=== PATIENT | female | born 1980 | race African-American/Black ===

== ENCOUNTER 2019-06-04 16:18 | Inpatient (IN) | payer BC ==
[2019-06-04 19:13] VITALS: BMI 27.4
--- NOTE | 2019-06-04 20:24 | HP ---
CIWA Score Nausea/Vomitin-Mild Nausea/No Vomiting Muscle Tremors: None Anxiety: 1-Mildly Anxious Agitation: 1-Slight > Activity Paroxysmal Sweats: 3 Orientation: 2-Disoriented Date<2 days Tacttile Disturbances: 0-None Auditory Disturbances: 0-None Visual Disturbances: 0-None Headache: 4-Moderately Severe CIWA-Ar Total Score: 12 - Admission Criteria OASAS Guidelines: Admission for Medically Managed Detox: Requires at least one of the followin. CIWA greater than 12 2. Seizures within the past 24 hours 3. Delirium tremens within the past 24 hours 4. Hallucinations within the past 24 hours 5. Acute intervention needed for co occurring medical disorder 6. Acute intervention needed for co occurring psychiatric disorder 7. Severe withdrawal that cannot be handled at a lower level of care (continued vomiting, continued diarrhea, abnormal vital signs) requiring intravenous medication and/or fluids 8. Patient presents the following: CIWA greater than 12 Admission Criteria Met: Admission criteria met Admitting History and Physical - Smoking History Smoking history: Current every day smoker Have you smoked in the past 12 months: Yes Admission ROS [facility] Chief Complaint: seeking detox Allergies/Adverse Reactions: Allergies Allergy/AdvReac Type Severity Reaction Status Date / Time No Known Allergies Allergy Verified 06/04/19 19:04 History of Present Illness: HERE FOR DETOX FROM ALCOHOL. CLIENT IS REFERRED BY [facility]. THIS IS HER FIRST TIME SEEKING INPATIENT TXMENT. CLIENT REPORTS DAILY ALCOHOL INTAKE. LAST INTAKE A FEW HOURS AGO. NOW PRESENTS WITH C/O WORSENING WITHDRAWAL SX'S. 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 REPORTS LONGEST CLEAN TIME 9 MONTHS. RELAPSING IN 2006. HOMELESS, UNEMPLOYED, DENIES LEGALS Exam Limitations: No Limitations - Ebola screening Have you traveled outside of the country in the last 21 days: No (N) Have you had contact with anyone from an Ebola affected area: No Do you have a fever: No - Review of Systems Constitutional: Chills, Loss of Appetite, Night Sweats, Changes in sleep EENT: reports: Blurred Vision, Dental Problems (MISSING TEETH/POOR DENTITION) Respiratory: reports: Shortness of Breath Cardiac: reports: Chest Tightness (INTERMITTENT- PRESENTLY DENIES) GI: reports: Nausea, Poor Appetite, Poor Fluid Intake, Vomiting (X 1 TODAY) : reports: No Symptoms Reported Musculoskeletal: reports: Back Pain, Joint Pain, Neck Pain Integumentary: reports: No Symptoms Reported Neuro: reports: Seizure (GENERALIZED FATIGUE), Other (BLACK OUTS) Endocrine: reports: No Symptoms Reported Hematology: reports: No Symptoms Reported Psychiatric: reports: Orientated x3, Agitated (IRRITABLE) Other Systems: Reviewed and Negative Patient History - Patient Medical History Hx Anemia: No Hx Asthma: No Hx Chronic Obstructive Pulmonary Disease (COPD): No Hx Cancer: No Hx Cardiac Disorders: No Hx Congestive Heart Failure: No Hx Hypertension: No Hx Hypercholesterolemia: No Hx Pacemaker: No HX Cerebrovascular Accident: No Hx Seizures: No Hx Dementia: No Hx Diabetes: No Hx Gastrointestinal Disorders: No Hx Liver Disease: No Hx Genitourinary Disorders: No Hx Sexually Transmitted Disorders: No Hx Renal Disease (ESRD): No Hx Thyroid Disease: No Hx Human Immunodeficiency Virus (HIV): No Hx Hepatitis C: No Hx Depression: No Hx Suicide Attempt: No Hx Bipolar Disorder: No Hx Schizophrenia: No Other Medical History: DENIES - Patient Surgical History Past Surgical History: Yes Other Surgical History: SPLEENECTOMY Anesthesia Reaction: No - PPD History Previous Implant?: Yes Documented Results: Negative w/o proof Implanted On Prior R Admission?: No PPD to be Administered?: Yes - Reproductive History Patient is a Female of Child Bearing Age (11 -55 yrs old): Yes LMP comment: "YEARS AGO" [place] [facility] [place] - Smoking Cessation Smoking history: Current every day smoker Have you smoked in the past 12 months: Yes Aproximately how many cigarettes per day: 4 Cigars Per Day: 2 Hx Chewing Tobacco Use: No Initiated information on smoking cessation: Yes 'Breaking Loose' booklet given: 06/04/19 - Substances abused Alcohol Substance route: Oral Frequency: Daily Amount used: 3 bottles of Pualmason/ julio. Age of first use: 18 Date of last use: 06/04/19 Admission Physical Exam BHS - Vital Signs Vital Signs: Vital Signs - 24 hr 06/04/19 19:05 Temperature 98.4 F Pulse Rate 83 Respiratory 16 Rate Blood Pressure 127/86 - Physical General Appearance: Yes: Mild Distress, Irritable HEENTM: Yes: EOMI, Normocephalic, Normal Voice, JOSHUA, Nasal Congestion, Other ( POOR DENTITION) Respiratory: Yes: Chest Non-Tender, Lungs Clear, Normal Breath Sounds, No Respiratory Distress, No Accessory Muscle Use Neck: Yes: No masses,lesions,Nodules, Supple, Trachea in good position Breast: Yes: Breast Exam Deferred Cardiology: Yes: Regular Rhythm, Regular Rate, S1, S2 Abdominal: Yes: Normal Bowel Sounds, Non Tender, Soft Genitourinary: Yes: Within Normal Limits Back: Yes: Surgical Scar Musculoskeletal: Yes: full range of Motion, Gait Steady Extremities: Yes: Normal Capillary Refill, Normal Range of Motion, Non-Tender Neurological: Yes: Fully Oriented, Alert, Motor Strength 5/5, Depressed Affect Integumentary: Yes: Dry, Warm Lymphatic: Yes: Within Normal Limits - Diagnostic (1) Alcohol dependence with withdrawal, uncomplicated Current Visit: Yes Status: Acute (2) Nicotine dependence Current Visit: Yes Status: Chronic Qualifiers: Nicotine product type: cigarettes Substance use status: uncomplicated Qualified Code(s): F17.210 - Nicotine dependence, cigarettes, uncomplicated (3) Depressed affect Current Visit: Yes Status: Acute (4) Substance induced mood disorder Current Visit: Yes Status: Acute (5) Homeless Current Visit: Yes Status: Acute Cleared for Admission [facility] - Detox or Rehab [facility] Level of Care: Medically Managed Detox Regimen/Protocol: Valium Claeared for Rehab Admission: No Breathalyzer - Breathalyzer Breathalyzer: 0 Urine Drug Screen - Test Device Lot number: [id number] Expiration date: 02/06/21 - Control Is test valid?: Yes - Results Drug screen NEGATIVE: Yes Inpatient Rehab Admission - Rehab Decision to Admit Inpatient rehab admission?: No
[2019-06-04] MEDS ORDERED: IBUPROFEN 400 MG TABLET (FP) PO PRN (20:32)
[2019-06-04] MEDS ORDERED: NICOTINE POLACRILEX 2 MG GUM BUC PRN (20:32)
[2019-06-04] MEDS ORDERED: ACETAMINOPHEN 325 MG TABLET (FP) PO PRN ×2 (20:32)
[2019-06-04] MEDS ORDERED: METHOCARBAMOL 500 MG TABLET PO PRN (20:32)
[2019-06-04] MEDS ORDERED: DICYCLOMINE HCL 10 MG CAPSULE PO PRN (20:32)
[2019-06-04] MEDS ORDERED: P-EPHED 60MG/TRIPROLIDI 2.5MG TABLET PO PRN (20:32)
[2019-06-04] MEDS ORDERED: BISMUTH SUBSALICYLATE 524 MG/30 ML UD PO PRN (20:32)
[2019-06-04] MEDS ORDERED: ONDANSETRON *ODT* 4 MG TABLET SL PRN (20:32)
[2019-06-04] MEDS ORDERED: MAG HYDROX/AL HYDROX/SIMETH 30 ML UNIT-DOSE CUP PO PRN (20:32)
[2019-06-04] MEDS ORDERED: hydrOXYzine PAMOATE 25 MG CAPSULE (FP) PO PRN (20:32)
[2019-06-04] MEDS ORDERED: MAGNESIUM HYDROX 2400MG/30ML ORAL SUSPENSION 30 ML CUP PO PRN (20:32)
[2019-06-04] MEDS ORDERED: diazePAM 5 MG TABLET PO PRN (20:32)
[2019-06-04] MEDS ORDERED: MENTHOL/PHENOL 1 EACH UD MM PRN (20:32)
[2019-06-04] MEDS ORDERED: guaiFENesin 200 MG/10 ML 10 ML UNIT-DOSE CUPS PO PRN (20:32)
[2019-06-04] MEDS ORDERED: MELATONIN 5 MG TABLETS PO PRN (20:32)
[2019-06-04] MEDS ORDERED: MAGNESIUM CITRATE 300 ML BOTTLE PO PRN (20:32)
[2019-06-04] MEDS: diazePAM 5 MG TABLET PO SCH (22:44)
[2019-06-04] MEDS: THIAMINE HCL 100 MG TABLET (FP) PO SCH (22:44)
[2019-06-05] MEDS: diazePAM 5 MG TABLET PO SCH ×3 (06:19→22:25)
[2019-06-05 10:26] LABS: ALBUMIN 3.4 g/dl (3.4-5.0); BILIRUBIN,TOTAL 0.4 mg/dL (0.2-1); BLOOD UREA NITROGEN 11.7 mg/dL (7-18); CALCIUM 8.8 mg/dL (8.5-10.1); CREATININE 0.6 mg/dL (0.55-1.3); POTASSIUM 3.9 mmol/L (3.5-5.1)
[2019-06-05 10:30] LABS: HEMATOCRIT 36.7 % (32.4-45.2); HEMOGLOBIN 11.9 GM/dL (10.7-15.3); MCH 28.4 pg (25.7-33.7); MCHC 32.4 g/dl (32.0-36.0); MEAN CELL VOLUME 87.6 fl (80-96); MEAN PLT VOLUME 8.1 fl (7.5-11.1); PLATELET COUNT 286 K/MM3 (134-434); RBC 4.19 M/mm3 (3.60-5.2); WHITE BLOOD COUNT 5.1 K/mm3 (4.0-10.0)
--- NOTE | 2019-06-05 10:49 | EKG ---
Test Reason : Blood Pressure : / mmHG Vent. Rate : 066 BPM Atrial Rate : 066 BPM P-R Int : 144 ms QRS Dur : 094 ms QT Int : 414 ms P-R-T Axes : 053 023 028 degrees QTc Int : 434 ms NORMAL SINUS RHYTHM NORMAL ECG NO PREVIOUS ECGS AVAILABLE Confirmed by LAUREN REN, SAGRARIO ([id number]) on 06/05/2019 10:49:16 AM Referred By: Abdulkadir Carney Confirmed By:SAGRARIO AGUILAR MD
[2019-06-05] MEDS: NICOTINE 14 MG/24 HOURS TOPICAL PATCH TD SCH (10:50)
[2019-06-05] MEDS: PRENATAL VITAMINS W/ FOLIC ACID TABLET (FP) PO SCH (10:50)
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
[2019-06-05] MEDS ORDERED: MELATONIN 5 MG TABLETS PO PRN (12:06)
--- NOTE | 2019-06-05 12:32 | PN ---
[facility] CIWA - CIWA Score Nausea/Vomitin-No Nausea/No Vomiting Muscle Tremors: 3 Anxiety: 3 Agitation: 3 Paroxysmal Sweats: 2 Orientation: 0-Oriented Tacttile Disturbances: 0-None Auditory Disturbances: 0-None Visual Disturbances: 0-None Headache: 0-None Present CIWA-Ar Total Score: 11 S Progress Note (SOAP) Subjective: sweats irritable agitation body aches Objective: 06/05/19 12:31 Vital Signs Temperature 98.1 F 06/05/19 09:43 Pulse Rate 97 H 06/05/19 09:43 Respiratory Rate 18 06/05/19 09:43 Blood Pressure 129/86 06/05/19 09:43 O2 Sat by Pulse Oximetry (%) Laboratory Tests 06/04/19 06/05/19 06/05/19 19:54 07:00 07:00 WBC 5.1 RBC 4.19 Hgb 11.9 Hct 36.7 MCV 87.6 MCH 28.4 MCHC 32.4 RDW 14.0 Plt Count 286 MPV 8.1 Sodium 139 Potassium 3.9 Chloride 106 Carbon Dioxide 29 Anion Gap 4 L BUN 11.7 Creatinine 0.6 Est GFR (CKD-EPI)AfAm 134.96 Est GFR (CKD-EPI)NonAf 116.44 Random Glucose 97 Calcium 8.8 Total Bilirubin 0.4 AST 15 ALT 24 Alkaline Phosphatase 78 Total Protein 6.0 L Albumin 3.4 POC Urine HCG, Qual Negative RPR Titer 06/05/19 07:00 WBC RBC Hgb Hct MCV MCH MCHC RDW Plt Count MPV Sodium Potassium Chloride Carbon Dioxide Anion Gap BUN Creatinine Est GFR (CKD-EPI)AfAm Est GFR (CKD-EPI)NonAf Random Glucose Calcium Total Bilirubin AST ALT Alkaline Phosphatase Total Protein Albumin POC Urine HCG, Qual RPR Titer Nonreactive labs noted aaox3 ambulating no acute distress Assessment: 06/05/19 12:32 withdrawals Plan: continue detox increase fluids
[2019-06-05] MEDS ORDERED: SUVOREXANT 10 MG TABLET PO PRN (22:00)
[2019-06-05] MEDS: THIAMINE HCL 100 MG TABLET (FP) PO SCH (22:25)
[2019-06-06] MEDS: diazePAM 5 MG TABLET PO SCH ×2 (06:36→17:28)
[2019-06-06] MEDS: PRENATAL VITAMINS W/ FOLIC ACID TABLET (FP) PO SCH (11:06)
[2019-06-06] MEDS: NICOTINE 14 MG/24 HOURS TOPICAL PATCH TD SCH (11:06)
[2019-06-06] MEDS: valACYclovir HCL 500 MG TABLET (FP) PO SCH ×2 (11:06→22:56)
--- NOTE | 2019-06-06 12:13 | PN ---
S CIWA - CIWA Score Nausea/Vomitin-No Nausea/No Vomiting Muscle Tremors: 2 Anxiety: 1-Mildly Anxious Agitation: 1-Slight > Activity Paroxysmal Sweats: No Perspiration Orientation: 0-Oriented Tacttile Disturbances: 0-None Auditory Disturbances: 0-None Visual Disturbances: 0-None Headache: 0-None Present CIWA-Ar Total Score: 4 BHS Progress Note (SOAP) Subjective: feeling better anxiety Objective: 06/06/19 12:11 Vital Signs Temperature 99.5 F 06/06/19 10:54 Pulse Rate 87 06/06/19 10:54 Respiratory Rate 18 06/06/19 10:54 Blood Pressure 150/83 06/06/19 10:54 O2 Sat by Pulse Oximetry (%) Laboratory Tests 06/04/19 06/05/19 06/05/19 19:54 07:00 07:00 WBC 5.1 RBC 4.19 Hgb 11.9 Hct 36.7 MCV 87.6 MCH 28.4 MCHC 32.4 RDW 14.0 Plt Count 286 MPV 8.1 Sodium 139 Potassium 3.9 Chloride 106 Carbon Dioxide 29 Anion Gap 4 L BUN 11.7 Creatinine 0.6 Est GFR (CKD-EPI)AfAm 134.96 Est GFR (CKD-EPI)NonAf 116.44 Random Glucose 97 Calcium 8.8 Total Bilirubin 0.4 AST 15 ALT 24 Alkaline Phosphatase 78 Total Protein 6.0 L Albumin 3.4 POC Urine HCG, Qual Negative RPR Titer 06/05/19 07:00 WBC RBC Hgb Hct MCV MCH MCHC RDW Plt Count MPV Sodium Potassium Chloride Carbon Dioxide Anion Gap BUN Creatinine Est GFR (CKD-EPI)AfAm Est GFR (CKD-EPI)NonAf Random Glucose Calcium Total Bilirubin AST ALT Alkaline Phosphatase Total Protein Albumin POC Urine HCG, Qual RPR Titer Nonreactive labs noted aaox3 ambulating no acute distress Assessment: 06/06/19 12:12 mild withdrawals Plan: continue detox d/c in am
[2019-06-06] MEDS: THIAMINE HCL 100 MG TABLET (FP) PO SCH (22:56)
[2019-06-07] MEDS ORDERED: diazePAM 5 MG TABLET PO ONE (06:00)
[2019-06-07 06:25] VITALS: BP 111/63; PULSE 67; TEMP 97.2
--- NOTE | 2019-06-07 09:51 | DS ---
[facility] Detox Discharge Summary Admission Date: 06/04/19 Discharge Date: 06/07/19 - History Present History: Alcohol Dependence - Physical Exam Results Vital Signs: Vital Signs Temperature 97.2 F L 06/07/19 06:00 Pulse Rate 67 06/07/19 06:00 Respiratory Rate 18 06/07/19 06:00 Blood Pressure 111/63 06/07/19 06:00 O2 Sat by Pulse Oximetry (%) Pertinent Admission Physical Exam Findings: pt arrived in withdrawals Vital Signs Temperature 97.2 F L 06/07/19 06:00 Pulse Rate 67 06/07/19 06:00 Respiratory Rate 18 06/07/19 06:00 Blood Pressure 111/63 06/07/19 06:00 O2 Sat by Pulse Oximetry (%) Laboratory Tests 06/04/19 06/05/19 06/05/19 19:54 07:00 07:00 WBC 5.1 RBC 4.19 Hgb 11.9 Hct 36.7 MCV 87.6 MCH 28.4 MCHC 32.4 RDW 14.0 Plt Count 286 MPV 8.1 Sodium 139 Potassium 3.9 Chloride 106 Carbon Dioxide 29 Anion Gap 4 L BUN 11.7 Creatinine 0.6 Est GFR (CKD-EPI)AfAm 134.96 Est GFR (CKD-EPI)NonAf 116.44 Random Glucose 97 Calcium 8.8 Total Bilirubin 0.4 AST 15 ALT 24 Alkaline Phosphatase 78 Total Protein 6.0 L Albumin 3.4 POC Urine HCG, Qual Negative RPR Titer 06/05/19 07:00 WBC RBC Hgb Hct MCV MCH MCHC RDW Plt Count MPV Sodium Potassium Chloride Carbon Dioxide Anion Gap BUN Creatinine Est GFR (CKD-EPI)AfAm Est GFR (CKD-EPI)NonAf Random Glucose Calcium Total Bilirubin AST ALT Alkaline Phosphatase Total Protein Albumin POC Urine HCG, Qual RPR Titer Nonreactive today pt is aaox3 ambulating no acute distress no s/s of withdrawals - Treatment Hospital Course: Detox Protocol Followed, Detoxed Safely, Responded well, Discharged Condition Good, Rehab Referral Accepted Patient has Accepted a Rehab Referral to: pt referred to inpatient rehab [facility] - Medication Discharge Medications: Ambulatory Orders NK [No Known Home Medication] 06/03/19 - Diagnosis (1) Alcohol dependence with withdrawal, uncomplicated Current Visit: Yes Status: Chronic (2) Alcohol-induced mood disorder Current Visit: Yes Status: Acute (3) Alcohol-induced sleep disorder Current Visit: Yes Status: Acute (4) Depressed affect Current Visit: Yes Status: Acute (5) Homeless Current Visit: Yes Status: Acute (6) Substance induced mood disorder Current Visit: Yes Status: Acute (7) Nicotine dependence Current Visit: Yes Status: Chronic Qualifiers: Nicotine product type: cigarettes Substance use status: uncomplicated Qualified Code(s): F17.210 - Nicotine dependence, cigarettes, uncomplicated (8) Post-splenectomy Current Visit: No Status: Resolved - AMA Did Patient Leave Against Medical Advice: No
[2019-06-07] MEDS: valACYclovir HCL 500 MG TABLET (FP) PO SCH (10:18)
[2019-06-07] MEDS: PRENATAL VITAMINS W/ FOLIC ACID TABLET (FP) PO SCH (10:18)
[2019-06-07] MEDS: NICOTINE 14 MG/24 HOURS TOPICAL PATCH TD SCH (10:19)
== END 2019-06-07 11:13 | disposition home or self-care (01) | DRG 775 ==
LOC: YASAS 16:18 → Y6N 21:22
PROVIDERS: ADMIT Allergy & Immunology; ATTEND Allergy & Immunology
PROC: HZ2ZZZZ Detoxification Services for Substance Abuse Treatment (ICD-10-PCS; principal; 2019-06-04)
DX: F10.230 Alcohol dependence with withdrawal, uncomplicated (principal); F17.210 Nicotine dependence, cigarettes, uncomplicated; F10.282 Alcohol dependence with alcohol-induced sleep disorder; F10.24 Alcohol dependence with alcohol-induced mood disorder; F19.24 Other psychoactive substance dependence with psychoactive substance-induced mood disorder; R45.89 Other symptoms and signs involving emotional state; Z90.81 Acquired absence of spleen; Z59.0 Homelessness
CPT/HCPCS: 36415; 80053; 81025; 85027; 86593; 93005; 93010

== ENCOUNTER 2022-09-30 23:41 | Inpatient (IN) | payer BC ==
[2022-10-01] MEDS ORDERED: ONDANSETRON *ODT* 4 MG TABLET SL PRN (03:03)
[2022-10-01] MEDS ORDERED: POLYETHYLENE GLYCOL (HEALTHYLAX) 3350 17 GM PACKET PO PRN (03:03)
[2022-10-01] MEDS ORDERED: NICOTINE 10 MG CARTRIDGE (INHALER) IH PRN (03:03)
[2022-10-01] MEDS ORDERED: guaiFENesin 600 MG TABLET.ER (FP) PO PRN (03:03)
[2022-10-01] MEDS ORDERED: NALOXONE HCL 0.4 MG/ML VIAL IM PRN (03:03)
[2022-10-01] MEDS ORDERED: BENZOCAINE/MENTHOL (CHLORASEPTIC ) LOZENGE MM PRN (03:03)
[2022-10-01] MEDS ORDERED: BISMUTH SUBSALICYLATE 524 MG/30 ML PO PRN (03:03)
[2022-10-01] MEDS ORDERED: IBUPROFEN 400 MG TABLET (FP) PO PRN (03:03)
[2022-10-01] MEDS ORDERED: NALOXONE HCL (KLOXXADO) 8 MG SPRAY NS PRN (03:03)
[2022-10-01] MEDS ORDERED: BENZONATATE 200 MG CAPSULE PO PRN (03:03)
[2022-10-01] MEDS ORDERED: LOPERAMIDE HCL 2 MG CAPSULE PO PRN (03:03)
[2022-10-01] MEDS ORDERED: MAG HYDROX/AL HYDROX/SIMETH 30 ML UNIT-DOSE CUP PO PRN (03:03)
[2022-10-01] MEDS ORDERED: DICYCLOMINE HCL 10 MG CAPSULE PO PRN (03:03)
[2022-10-01] MEDS ORDERED: MAGNESIUM HYDROX 2400MG/30ML ORAL SUSPENSION 30 ML CUP PO PRN (03:03)
[2022-10-01] MEDS: IBUPROFEN 600 MG TABLET (FP) PO PRN ×2 (03:13→19:17)
[2022-10-01] MEDS ORDERED: IBUPROFEN 600 MG TABLET (FP) PO ONE (03:13)
[2022-10-01] MEDS: PRENATAL VITAMINS W/ FOLIC ACID TABLET (FP) PO SCH (10:38)
[2022-10-01] MEDS: ACETAMINOPHEN 325 MG TABLET (FP) PO PRN ×2 (10:38→22:35)
[2022-10-01] MEDS: NICOTINE 14 MG/24 HOURS TOPICAL PATCH TD SCH (10:40)
[2022-10-01] MEDS: METHOCARBAMOL 500 MG TABLET PO PRN (19:18)
[2022-10-01] MEDS: THIAMINE HCL 100 MG TABLET (FP) PO SCH (22:34)
[2022-10-01] MEDS: MELATONIN 5 MG TABLETS PO SCH (22:34)
[2022-10-02] MEDS: PRENATAL VITAMINS W/ FOLIC ACID TABLET (FP) PO SCH (09:56)
[2022-10-02] MEDS: NICOTINE 14 MG/24 HOURS TOPICAL PATCH TD SCH (09:56)
[2022-10-02] MEDS: MELATONIN 5 MG TABLETS PO SCH (22:12)
[2022-10-02] MEDS: THIAMINE HCL 100 MG TABLET (FP) PO SCH (22:12)
[2022-10-02] MEDS: METHOCARBAMOL 500 MG TABLET PO PRN (22:13)
[2022-10-02] MEDS: IBUPROFEN 600 MG TABLET (FP) PO PRN (22:13)
[2022-10-03] MEDS: ACETAMINOPHEN 325 MG TABLET (FP) PO PRN (08:40)
[2022-10-03 09:07] VITALS: RESP 18
[2022-10-03] MEDS: PRENATAL VITAMINS W/ FOLIC ACID TABLET (FP) PO SCH (10:42)
[2022-10-03] MEDS: NICOTINE 14 MG/24 HOURS TOPICAL PATCH TD SCH (10:42)
[2022-10-03 11:43] LABS: HEMATOCRIT 32.9 % (32.4-45.2); MCH 27.8 pg (25.7-33.7); MCHC 33.3 g/dl (32.0-36.0); MEAN CELL VOLUME 83.3 fl (80-96); MEAN PLT VOLUME 7.2 fl (7.5-11.1); PLATELET COUNT 463 10^3/uL (134-434); RBC 3.95 M/mm3 (3.60-5.2); RDW 14.5 % (11.6-15.6)
[2022-10-03 11:45] LABS: CALCIUM 9.1 mg/dL (8.5-10.1)
[2022-10-03 11:46] LABS: ALBUMIN 3.7 g/dl (3.4-5.0); BLOOD UREA NITROGEN 20.8 mg/dL (7-18)
[2022-10-03 11:49] LABS: CREATININE 0.8 mg/dL (0.55-1.3)
[2022-10-03 11:50] LABS: TOT PROT 7.3 g/dl (6.4-8.2)
[2022-10-03 11:51] LABS: BILIRUBIN,TOTAL 0.5 mg/dL (0.2-1)
[2022-10-03 14:43] VITALS: BP 105/74; PULSE 73; TEMP 98.1
== END 2022-10-03 13:52 | disposition other institution (70) | DRG 775 ==
LOC: YASAS 23:41 → Y3N 10-01 02:52
PROVIDERS: ADMIT Allergy & Immunology; ATTEND Surgery
PROC: HZ2ZZZZ Detoxification Services for Substance Abuse Treatment (ICD-10-PCS; principal; 2022-10-01)
DX: F10.20 Alcohol dependence, uncomplicated (principal); F17.210 Nicotine dependence, cigarettes, uncomplicated
CPT/HCPCS: 36415; 80053; 81025; 85027; 86780; 87811; 93005; 93010; C9803-CS; U0003; U0005

== ENCOUNTER 2022-10-03 14:06 | Inpatient (IN) | payer BC ==
[2022-10-03] MEDS ORDERED: BENZONATATE 200 MG CAPSULE PO PRN (16:10)
[2022-10-03] MEDS ORDERED: BENZOCAINE/MENTHOL (CHLORASEPTIC ) LOZENGE MM PRN (16:10)
[2022-10-03] MEDS ORDERED: guaiFENesin 600 MG TABLET.ER (FP) PO PRN (16:10)
[2022-10-03] MEDS ORDERED: NALOXONE HCL 0.4 MG/ML VIAL IVPUSH PRN (16:10)
[2022-10-03] MEDS ORDERED: POLYETHYLENE GLYCOL (HEALTHYLAX) 3350 17 GM PACKET PO PRN (16:10)
[2022-10-03] MEDS ORDERED: NICOTINE 10 MG CARTRIDGE (INHALER) IH PRN (16:10)
[2022-10-03] MEDS ORDERED: MAGNESIUM HYDROX 2400MG/30ML ORAL SUSPENSION 30 ML CUP PO PRN (16:10)
[2022-10-03] MEDS ORDERED: METHOCARBAMOL 500 MG TABLET PO PRN (16:10)
[2022-10-03] MEDS ORDERED: LOPERAMIDE HCL 2 MG CAPSULE PO PRN (16:10)
[2022-10-03] MEDS ORDERED: MAG HYDROX/AL HYDROX/SIMETH 30 ML UNIT-DOSE CUP PO PRN (16:10)
[2022-10-03] MEDS ORDERED: NALOXONE HCL (KLOXXADO) 8 MG SPRAY NS PRN (16:10)
[2022-10-03] MEDS: THIAMINE HCL 100 MG TABLET (FP) PO SCH (21:43)
[2022-10-03] MEDS: MELATONIN 5 MG TABLETS PO SCH (21:43)
[2022-10-04] MEDS: PRENATAL VITAMINS W/ FOLIC ACID TABLET (FP) PO SCH (09:38)
[2022-10-04] MEDS: ACETAMINOPHEN 325 MG TABLET (FP) PO PRN ×2 (09:38→21:12)
[2022-10-04 12:24] LABS: HIV INTERPRETATION NEGATIVE (NEGATIVE)
[2022-10-04] MEDS: MELATONIN 5 MG TABLETS PO SCH (21:11)
[2022-10-04] MEDS: THIAMINE HCL 100 MG TABLET (FP) PO SCH (21:11)
[2022-10-05] MEDS: PRENATAL VITAMINS W/ FOLIC ACID TABLET (FP) PO SCH (09:41)
[2022-10-05] MEDS: ACETAMINOPHEN 325 MG TABLET (FP) PO PRN ×2 (09:43→21:38)
[2022-10-05] MEDS: MELATONIN 5 MG TABLETS PO SCH (21:38)
[2022-10-05] MEDS: THIAMINE HCL 100 MG TABLET (FP) PO SCH (21:39)
[2022-10-06] MEDS: PRENATAL VITAMINS W/ FOLIC ACID TABLET (FP) PO SCH (09:45)
[2022-10-06] MEDS: MELATONIN 5 MG TABLETS PO SCH (21:37)
[2022-10-06] MEDS: IBUPROFEN 400 MG TABLET (FP) PO PRN (21:37)
[2022-10-07] MEDS: THIAMINE HCL 100 MG TABLET (FP) PO SCH (10:31)
[2022-10-07] MEDS: PRENATAL VITAMINS W/ FOLIC ACID TABLET (FP) PO SCH (10:31)
[2022-10-07] MEDS: MELATONIN 5 MG TABLETS PO SCH (22:18)
[2022-10-07] MEDS: ACETAMINOPHEN 325 MG TABLET (FP) PO PRN (22:18)
[2022-10-08] MEDS: ACETAMINOPHEN 325 MG TABLET (FP) PO PRN ×2 (09:51→22:19)
[2022-10-08] MEDS: THIAMINE HCL 100 MG TABLET (FP) PO SCH (09:52)
[2022-10-08] MEDS: PRENATAL VITAMINS W/ FOLIC ACID TABLET (FP) PO SCH (09:52)
[2022-10-08] MEDS: MELATONIN 5 MG TABLETS PO SCH (22:17)
[2022-10-08] MEDS: hydrOXYzine PAMOATE 25 MG CAPSULE (FP) PO PRN (22:18)
[2022-10-09] MEDS: PRENATAL VITAMINS W/ FOLIC ACID TABLET (FP) PO SCH (09:29)
[2022-10-09] MEDS: ACETAMINOPHEN 325 MG TABLET (FP) PO PRN ×2 (09:31→21:50)
[2022-10-09] MEDS: THIAMINE HCL 100 MG TABLET (FP) PO SCH (09:31)
[2022-10-09] MEDS ORDERED: COLLOIDAL OATMEAL 1 BAR EACH TP PRN (12:04)
[2022-10-09] MEDS: hydrOXYzine PAMOATE 25 MG CAPSULE (FP) PO PRN (21:49)
[2022-10-09] MEDS: MELATONIN 5 MG TABLETS PO SCH (21:49)
[2022-10-10] MEDS: THIAMINE HCL 100 MG TABLET (FP) PO SCH (10:03)
[2022-10-10] MEDS: PRENATAL VITAMINS W/ FOLIC ACID TABLET (FP) PO SCH (10:03)
[2022-10-10] MEDS: ACETAMINOPHEN 325 MG TABLET (FP) PO PRN ×2 (10:05→21:36)
[2022-10-10] MEDS: METHOCARBAMOL 500 MG TABLET PO PRN ×2 (14:42→21:38)
[2022-10-10] MEDS: IBUPROFEN 400 MG TABLET (FP) PO PRN (14:42)
[2022-10-10] MEDS: MELATONIN 5 MG TABLETS PO SCH (21:35)
[2022-10-11] MEDS: METHOCARBAMOL 500 MG TABLET PO PRN ×2 (10:01→21:33)
[2022-10-11] MEDS: THIAMINE HCL 100 MG TABLET (FP) PO SCH (10:01)
[2022-10-11] MEDS: PRENATAL VITAMINS W/ FOLIC ACID TABLET (FP) PO SCH (10:01)
[2022-10-11] MEDS: ACETAMINOPHEN 325 MG TABLET (FP) PO PRN ×2 (10:01→21:34)
[2022-10-11] MEDS: MELATONIN 5 MG TABLETS PO SCH (21:32)
[2022-10-11] MEDS: hydrOXYzine PAMOATE 25 MG CAPSULE (FP) PO PRN (21:33)
[2022-10-12] MEDS: PRENATAL VITAMINS W/ FOLIC ACID TABLET (FP) PO SCH (09:23)
[2022-10-12] MEDS: THIAMINE HCL 100 MG TABLET (FP) PO SCH (09:23)
[2022-10-12] MEDS: MELATONIN 5 MG TABLETS PO SCH (21:21)
[2022-10-12] MEDS: METHOCARBAMOL 500 MG TABLET PO PRN (21:22)
[2022-10-12] MEDS: hydrOXYzine PAMOATE 25 MG CAPSULE (FP) PO PRN (21:23)
[2022-10-12] MEDS: ACETAMINOPHEN 325 MG TABLET (FP) PO PRN (21:24)
[2022-10-13] MEDS: IBUPROFEN 600 MG TABLET (FP) PO PRN ×2 (00:47→16:47)
[2022-10-13] MEDS: PRENATAL VITAMINS W/ FOLIC ACID TABLET (FP) PO SCH (09:33)
[2022-10-13] MEDS: THIAMINE HCL 100 MG TABLET (FP) PO SCH (09:37)
[2022-10-13] MEDS: ACETAMINOPHEN 325 MG TABLET (FP) PO PRN ×2 (09:37→21:13)
[2022-10-13] MEDS: METHOCARBAMOL 500 MG TABLET PO PRN ×2 (09:37→21:12)
[2022-10-13] MEDS: hydrOXYzine PAMOATE 25 MG CAPSULE (FP) PO PRN ×2 (09:37→21:15)
[2022-10-13] MEDS: MELATONIN 5 MG TABLETS PO SCH (21:10)
[2022-10-14] MEDS: ACETAMINOPHEN 325 MG TABLET (FP) PO PRN (07:35)
[2022-10-14] MEDS: THIAMINE HCL 100 MG TABLET (FP) PO SCH (09:49)
[2022-10-14] MEDS: PRENATAL VITAMINS W/ FOLIC ACID TABLET (FP) PO SCH (09:49)
[2022-10-14] MEDS: IBUPROFEN 600 MG TABLET (FP) PO PRN (09:51)
[2022-10-14] MEDS: METHOCARBAMOL 500 MG TABLET PO PRN ×2 (09:51→22:09)
[2022-10-14] MEDS: hydrOXYzine PAMOATE 25 MG CAPSULE (FP) PO PRN (22:09)
[2022-10-14] MEDS: MELATONIN 5 MG TABLETS PO SCH (22:09)
[2022-10-14] MEDS: IBUPROFEN 400 MG TABLET (FP) PO PRN (22:10)
[2022-10-15] MEDS: IBUPROFEN 400 MG TABLET (FP) PO PRN ×2 (10:13→21:03)
[2022-10-15] MEDS: PRENATAL VITAMINS W/ FOLIC ACID TABLET (FP) PO SCH (10:13)
[2022-10-15] MEDS: METHOCARBAMOL 500 MG TABLET PO PRN ×2 (10:13→21:03)
[2022-10-15] MEDS: THIAMINE HCL 100 MG TABLET (FP) PO SCH (10:13)
[2022-10-15] MEDS: MELATONIN 5 MG TABLETS PO SCH (21:02)
[2022-10-16] MEDS: PRENATAL VITAMINS W/ FOLIC ACID TABLET (FP) PO SCH (10:30)
[2022-10-16] MEDS: THIAMINE HCL 100 MG TABLET (FP) PO SCH (10:31)
[2022-10-16] MEDS: IBUPROFEN 400 MG TABLET (FP) PO PRN ×2 (10:32→21:16)
[2022-10-16] MEDS: ACETAMINOPHEN 325 MG TABLET (FP) PO PRN (14:50)
[2022-10-16] MEDS: METHOCARBAMOL 500 MG TABLET PO PRN ×2 (14:52→21:16)
[2022-10-16] MEDS: MELATONIN 5 MG TABLETS PO SCH (21:15)
[2022-10-17 07:14] VITALS: BP 149/98; PULSE 84; RESP 16; TEMP 97.8
[2022-10-17] MEDS: PRENATAL VITAMINS W/ FOLIC ACID TABLET (FP) PO SCH (09:46)
[2022-10-17] MEDS: IBUPROFEN 400 MG TABLET (FP) PO PRN (09:47)
[2022-10-17] MEDS: METHOCARBAMOL 500 MG TABLET PO PRN (09:47)
[2022-10-17] MEDS: THIAMINE HCL 100 MG TABLET (FP) PO SCH (09:48)
== END 2022-10-17 10:40 | disposition home or self-care (01) | DRG 772 ==
LOC: YASAS 14:06 → Y5N 14:07
PROVIDERS: ADMIT Allergy & Immunology; ATTEND Psychiatry & Neurology Pain Medicine
PROC: HZ42ZZZ Group Counseling for Substance Abuse Treatment, Cognitive-Behavioral (ICD-10-PCS; principal; 2022-10-03)
DX: F10.20 Alcohol dependence, uncomplicated (principal); F17.210 Nicotine dependence, cigarettes, uncomplicated; F10.282 Alcohol dependence with alcohol-induced sleep disorder; F10.24 Alcohol dependence with alcohol-induced mood disorder; F19.24 Other psychoactive substance dependence with psychoactive substance-induced mood disorder; F32.A Depression, unspecified; Z62.810 Personal history of physical and sexual abuse in childhood; Z59.00 Homelessness unspecified; Z90.81 Acquired absence of spleen
CPT/HCPCS: 36415; 86803; 87389

== ENCOUNTER 2023-05-06 09:09 | Inpatient (IN) | payer BC ==
[2023-05-06 10:03] VITALS: BMI 28.7
[2023-05-06] MEDS ORDERED: ONDANSETRON *ODT* 4 MG TABLET SL PRN (10:25)
[2023-05-06] MEDS ORDERED: MAG HYDROX/AL HYDROX/SIMETH 30 ML UNIT-DOSE CUP PO PRN (10:25)
[2023-05-06] MEDS ORDERED: IBUPROFEN 400 MG TABLET (FP) PO PRN (10:25)
[2023-05-06] MEDS ORDERED: NICOTINE POLACRILEX 2 MG GUM BUC PRN (10:25)
[2023-05-06] MEDS ORDERED: LOPERAMIDE HCL 2 MG CAPSULE PO PRN (10:25)
[2023-05-06] MEDS ORDERED: MAGNESIUM HYDROX 2400MG/30ML ORAL SUSPENSION 30 ML CUP PO PRN (10:25)
[2023-05-06] MEDS ORDERED: NALOXONE HCL (KLOXXADO) 8 MG SPRAY NS PRN (10:25)
[2023-05-06] MEDS ORDERED: BENZOCAINE/MENTHOL (CHLORASEPTIC ) LOZENGE MM PRN (10:25)
[2023-05-06] MEDS ORDERED: BENZONATATE 200 MG CAPSULE PO PRN (10:25)
[2023-05-06] MEDS ORDERED: guaiFENesin 600 MG TABLET.ER (FP) PO PRN (10:25)
[2023-05-06] MEDS ORDERED: BISMUTH SUBSALICYLATE 524 MG/30 ML PO PRN (10:25)
[2023-05-06] MEDS ORDERED: NALOXONE HCL 0.4 MG/ML VIAL IM PRN (10:25)
[2023-05-06] MEDS ORDERED: DICYCLOMINE HCL 10 MG CAPSULE PO PRN (10:25)
[2023-05-06] MEDS ORDERED: POLYETHYLENE GLYCOL (HEALTHYLAX) 3350 17 GM PACKET PO PRN (10:25)
[2023-05-06] MEDS: IBUPROFEN 600 MG TABLET (FP) PO PRN ×2 (11:52→17:25)
[2023-05-06] MEDS: chlordiazePOXIDE HCL 25 MG CAPSULE PO PRN (18:10)
[2023-05-06] MEDS: THIAMINE HCL 100 MG TABLET (FP) PO SCH (22:19)
[2023-05-06] MEDS: hydrOXYzine PAMOATE 25 MG CAPSULE (FP) PO PRN (22:20)
[2023-05-06] MEDS: chlordiazePOXIDE HCL 25 MG CAPSULE PO SCH (22:22)
[2023-05-06] MEDS: MELATONIN 5 MG TABLETS PO SCH (22:22)
[2023-05-07] MEDS: chlordiazePOXIDE HCL 25 MG CAPSULE PO SCH ×4 (05:43→22:14)
[2023-05-07] MEDS: IBUPROFEN 600 MG TABLET (FP) PO PRN ×2 (09:14→18:40)
[2023-05-07] MEDS: hydrOXYzine PAMOATE 25 MG CAPSULE (FP) PO PRN ×3 (09:15→22:14)
[2023-05-07] MEDS: PRENATAL VITAMINS W/ FOLIC ACID TABLET (FP) PO SCH (10:38)
[2023-05-07] MEDS: ACETAMINOPHEN 325 MG TABLET (FP) PO PRN ×2 (14:34→22:16)
[2023-05-07] MEDS: chlordiazePOXIDE HCL 25 MG CAPSULE PO PRN (14:40)
[2023-05-07] MEDS: METHOCARBAMOL 500 MG TABLET PO PRN ×2 (16:53→22:56)
[2023-05-07] MEDS: MELATONIN 5 MG TABLETS PO SCH (22:13)
[2023-05-07] MEDS: THIAMINE HCL 100 MG TABLET (FP) PO SCH (22:14)
[2023-05-08] MEDS: chlordiazePOXIDE HCL 25 MG CAPSULE PO SCH ×4 (05:50→22:04)
[2023-05-08] MEDS: IBUPROFEN 600 MG TABLET (FP) PO PRN (05:52)
[2023-05-08] MEDS: PRENATAL VITAMINS W/ FOLIC ACID TABLET (FP) PO SCH (10:11)
[2023-05-08] MEDS: ACETAMINOPHEN 325 MG TABLET (FP) PO PRN ×2 (10:11→17:09)
[2023-05-08] MEDS: hydrOXYzine PAMOATE 25 MG CAPSULE (FP) PO PRN (10:12)
[2023-05-08 10:19] LABS: CHLORIDE 102 mmol/L (98-107); POTASSIUM 3.8 mmol/L (3.5-5.1); SODIUM 138 mmol/L (136-145)
[2023-05-08 10:21] LABS: ALBUMIN 3.7 g/dl (3.4-5.0); ANION GAP 5 mmol/L (4-13); BLOOD UREA NITROGEN 14.2 mg/dL (7-18); CALCIUM 9.6 mg/dL (8.5-10.1); CO2 31 mmol/L (21-32); GLUCOSE,RANDOM 101 mg/dL (74-106)
[2023-05-08 10:22] LABS: HEMATOCRIT 39.1 % (32.4-45.2); HEMOGLOBIN 12.4 GM/dL (10.7-15.3); MCHC 31.7 g/dl (32.0-36.0); MEAN CELL VOLUME 88.2 fl (80-96); MEAN PLT VOLUME 7.4 fl (7.5-11.1); PLATELET COUNT 405 10^3/uL (134-434); RBC 4.43 M/mm3 (3.60-5.2); WHITE BLOOD COUNT 4.8 K/mm3 (4.0-10.0)
[2023-05-08 10:25] LABS: CREATININE 0.7 mg/dL (0.55-1.3); SGOT/AST 34 U/L (15-37); SGPT/ALT 45 U/L (13-61)
[2023-05-08 10:26] LABS: BILIRUBIN,TOTAL 0.3 mg/dL (0.2-1); TOT PROT 6.6 g/dl (6.4-8.2)
[2023-05-08 10:27] LABS: ALK PHOS 81 U/L (45-117)
[2023-05-08] MEDS: cloNIDine HCL 0.1 MG TABLET PO PRN (12:07)
[2023-05-08] MEDS: MELATONIN 5 MG TABLETS PO SCH (22:03)
[2023-05-08] MEDS: THIAMINE HCL 100 MG TABLET (FP) PO SCH (22:03)
[2023-05-09] MEDS ORDERED: chlordiazePOXIDE HCL 10 MG CAPSULE PO PRN
[2023-05-09] MEDS: chlordiazePOXIDE HCL 10 MG CAPSULE PO SCH ×4 (05:45→22:57)
[2023-05-09] MEDS: PRENATAL VITAMINS W/ FOLIC ACID TABLET (FP) PO SCH (10:03)
[2023-05-09] MEDS: ACETAMINOPHEN 325 MG TABLET (FP) PO PRN (10:04)
[2023-05-09] MEDS: hydrOXYzine PAMOATE 25 MG CAPSULE (FP) PO PRN (10:08)
[2023-05-09] MEDS: METHOCARBAMOL 500 MG TABLET PO PRN (13:20)
[2023-05-09] MEDS: cloNIDine HCL 0.1 MG TABLET PO PRN (13:21)
[2023-05-09] MEDS: MELATONIN 5 MG TABLETS PO SCH (22:56)
[2023-05-09] MEDS: THIAMINE HCL 100 MG TABLET (FP) PO SCH (22:57)
[2023-05-10] MEDS: chlordiazePOXIDE HCL 10 MG CAPSULE PO SCH ×2 (05:49→17:30)
[2023-05-10] MEDS: IBUPROFEN 600 MG TABLET (FP) PO PRN ×2 (05:52→13:05)
[2023-05-10] MEDS: PRENATAL VITAMINS W/ FOLIC ACID TABLET (FP) PO SCH (09:59)
[2023-05-10] MEDS: cloNIDine HCL 0.1 MG TABLET PO PRN (10:00)
[2023-05-10] MEDS: ACETAMINOPHEN 325 MG TABLET (FP) PO PRN (10:01)
[2023-05-10] MEDS: hydrOXYzine PAMOATE 25 MG CAPSULE (FP) PO PRN (13:05)
[2023-05-10] MEDS: MELATONIN 5 MG TABLETS PO SCH (21:01)
[2023-05-10] MEDS: THIAMINE HCL 100 MG TABLET (FP) PO SCH (21:01)
[2023-05-11] MEDS: METHOCARBAMOL 500 MG TABLET PO PRN (02:35)
[2023-05-11] MEDS: hydrOXYzine PAMOATE 25 MG CAPSULE (FP) PO PRN (02:35)
[2023-05-11] MEDS: IBUPROFEN 600 MG TABLET (FP) PO PRN (02:48)
[2023-05-11] MEDS ORDERED: chlordiazePOXIDE HCL 10 MG CAPSULE PO ONE (05:00)
[2023-05-11 09:14] VITALS: BP 129/68; PULSE 77; RESP 16; TEMP 97.7
== END 2023-05-11 09:24 | disposition home or self-care (01) | DRG 775 ==
LOC: YASAS 09:09 → Y3N 10:19
PROVIDERS: ADMIT Allergy & Immunology; ATTEND Surgery
PROC: HZ2ZZZZ Detoxification Services for Substance Abuse Treatment (ICD-10-PCS; principal; 2023-05-06)
DX: F10.230 Alcohol dependence with withdrawal, uncomplicated (principal); F17.210 Nicotine dependence, cigarettes, uncomplicated; F25.9 Schizoaffective disorder, unspecified; F31.9 Bipolar disorder, unspecified; Z62.810 Personal history of physical and sexual abuse in childhood; Z90.81 Acquired absence of spleen; Z91.148 Patient's other noncompliance with medication regimen for other reason; Z59.00 Homelessness unspecified; Z56.0 Unemployment, unspecified
CPT/HCPCS: 36415; 80053; 80307; 81025; 85027; 86780; 87635

== ENCOUNTER 2023-05-16 02:12 | Inpatient (IN) | payer BC ==
[2023-05-16 02:34] VITALS: BMI 31.6
[2023-05-16] MEDS ORDERED: LORazepam 2 MG TABLET PO ONE (02:43)
[2023-05-16] MEDS ORDERED: LORazepam 2 MG TABLET ONE (02:52)
[2023-05-16] MEDS ORDERED: IBUPROFEN 400 MG TABLET (FP) PO PRN (06:23)
[2023-05-16] MEDS ORDERED: LOPERAMIDE HCL 2 MG CAPSULE PO PRN (06:23)
[2023-05-16] MEDS ORDERED: NALOXONE HCL (KLOXXADO) 8 MG SPRAY NS PRN (06:23)
[2023-05-16] MEDS ORDERED: BENZONATATE 200 MG CAPSULE PO PRN (06:23)
[2023-05-16] MEDS ORDERED: guaiFENesin 600 MG TABLET.ER (FP) PO PRN (06:23)
[2023-05-16] MEDS ORDERED: NALOXONE HCL 0.4 MG/ML VIAL IVPUSH PRN (06:23)
[2023-05-16] MEDS ORDERED: BENZOCAINE/MENTHOL (CHLORASEPTIC ) LOZENGE MM PRN (06:23)
[2023-05-16] MEDS ORDERED: MAG HYDROX/AL HYDROX/SIMETH 30 ML UNIT-DOSE CUP PO PRN (06:23)
[2023-05-16] MEDS ORDERED: POLYETHYLENE GLYCOL (HEALTHYLAX) 3350 17 GM PACKET PO PRN (06:23)
[2023-05-16] MEDS ORDERED: NICOTINE POLACRILEX 4 MG GUM BUC PRN (06:23)
[2023-05-16] MEDS ORDERED: MAGNESIUM HYDROX 2400MG/30ML ORAL SUSPENSION 30 ML CUP PO PRN (06:23)
[2023-05-16] MEDS: hydrOXYzine PAMOATE 25 MG CAPSULE (FP) PO PRN ×3 (08:33→21:46)
[2023-05-16] MEDS: IBUPROFEN 600 MG TABLET (FP) PO PRN ×2 (08:33→21:52)
[2023-05-16] MEDS: METHOCARBAMOL 500 MG TABLET PO PRN ×3 (08:33→21:46)
[2023-05-16] MEDS: PRENATAL VITAMINS W/ FOLIC ACID TABLET (FP) PO SCH (09:34)
[2023-05-16] MEDS: NICOTINE 14 MG/24 HOURS TOPICAL PATCH TD SCH (09:34)
[2023-05-16] MEDS: ACETAMINOPHEN 325 MG TABLET (FP) PO PRN (14:04)
[2023-05-16] MEDS: MELATONIN 5 MG TABLETS PO SCH (21:46)
[2023-05-16] MEDS: THIAMINE HCL 100 MG TABLET (FP) PO SCH (21:57)
[2023-05-17] MEDS: COLLOIDAL OATMEAL 1 BAR EACH TP PRN (06:39)
[2023-05-17] MEDS: IBUPROFEN 600 MG TABLET (FP) PO PRN ×3 (06:44→21:39)
[2023-05-17 07:52] VITALS: RESP 18
[2023-05-17] MEDS: PRENATAL VITAMINS W/ FOLIC ACID TABLET (FP) PO SCH (09:23)
[2023-05-17] MEDS: NICOTINE 14 MG/24 HOURS TOPICAL PATCH TD SCH (09:24)
[2023-05-17] MEDS: hydrOXYzine PAMOATE 25 MG CAPSULE (FP) PO PRN ×2 (09:26→21:39)
[2023-05-17] MEDS: ACETAMINOPHEN 325 MG TABLET (FP) PO PRN (09:27)
[2023-05-17] MEDS: METHOCARBAMOL 500 MG TABLET PO PRN ×2 (09:27→21:41)
[2023-05-17] MEDS: MELATONIN 5 MG TABLETS PO SCH (21:39)
[2023-05-17] MEDS: THIAMINE HCL 100 MG TABLET (FP) PO SCH (21:42)
[2023-05-18] MEDS: IBUPROFEN 600 MG TABLET (FP) PO PRN ×3 (06:45→19:55)
[2023-05-18] MEDS: NICOTINE 14 MG/24 HOURS TOPICAL PATCH TD SCH (09:58)
[2023-05-18] MEDS: PRENATAL VITAMINS W/ FOLIC ACID TABLET (FP) PO SCH (09:58)
[2023-05-18] MEDS: ACETAMINOPHEN 325 MG TABLET (FP) PO PRN ×2 (10:00→21:42)
[2023-05-18] MEDS: hydrOXYzine PAMOATE 25 MG CAPSULE (FP) PO PRN ×2 (10:00→21:42)
[2023-05-18] MEDS: METHOCARBAMOL 500 MG TABLET PO PRN ×2 (10:00→21:42)
[2023-05-18] MEDS: MELATONIN 5 MG TABLETS PO SCH (21:40)
[2023-05-18] MEDS: THIAMINE HCL 100 MG TABLET (FP) PO SCH (21:41)
[2023-05-19] MEDS: ACETAMINOPHEN 325 MG TABLET (FP) PO PRN (06:34)
[2023-05-19] MEDS: METHOCARBAMOL 500 MG TABLET PO PRN ×2 (06:34→21:32)
[2023-05-19] MEDS: NICOTINE 14 MG/24 HOURS TOPICAL PATCH TD SCH (09:37)
[2023-05-19] MEDS: PRENATAL VITAMINS W/ FOLIC ACID TABLET (FP) PO SCH (09:37)
[2023-05-19] MEDS: hydrOXYzine PAMOATE 25 MG CAPSULE (FP) PO PRN ×2 (09:39→21:32)
[2023-05-19] MEDS: IBUPROFEN 600 MG TABLET (FP) PO PRN ×2 (09:39→21:31)
[2023-05-19] MEDS: MELATONIN 5 MG TABLETS PO SCH (21:31)
[2023-05-19] MEDS: THIAMINE HCL 100 MG TABLET (FP) PO SCH (21:33)
[2023-05-20] MEDS: IBUPROFEN 600 MG TABLET (FP) PO PRN ×4 (03:39→21:48)
[2023-05-20] MEDS: NICOTINE 14 MG/24 HOURS TOPICAL PATCH TD SCH (10:30)
[2023-05-20] MEDS: PRENATAL VITAMINS W/ FOLIC ACID TABLET (FP) PO SCH (10:30)
[2023-05-20] MEDS: METHOCARBAMOL 500 MG TABLET PO PRN ×2 (10:32→21:51)
[2023-05-20] MEDS: hydrOXYzine PAMOATE 25 MG CAPSULE (FP) PO PRN ×2 (10:32→21:49)
[2023-05-20] MEDS: MELATONIN 5 MG TABLETS PO SCH (21:48)
[2023-05-20] MEDS: THIAMINE HCL 100 MG TABLET (FP) PO SCH (21:48)
[2023-05-21] MEDS: NICOTINE 14 MG/24 HOURS TOPICAL PATCH TD SCH (09:52)
[2023-05-21] MEDS: PRENATAL VITAMINS W/ FOLIC ACID TABLET (FP) PO SCH (09:52)
[2023-05-21] MEDS: METHOCARBAMOL 500 MG TABLET PO PRN ×2 (09:53→21:27)
[2023-05-21] MEDS: IBUPROFEN 600 MG TABLET (FP) PO PRN ×2 (09:53→21:27)
[2023-05-21] MEDS: MELATONIN 5 MG TABLETS PO SCH (21:26)
[2023-05-21] MEDS: THIAMINE HCL 100 MG TABLET (FP) PO SCH (21:27)
[2023-05-21] MEDS: hydrOXYzine PAMOATE 25 MG CAPSULE (FP) PO PRN (21:27)
[2023-05-22] MEDS: IBUPROFEN 600 MG TABLET (FP) PO PRN ×2 (08:46→22:17)
[2023-05-22] MEDS: PRENATAL VITAMINS W/ FOLIC ACID TABLET (FP) PO SCH (09:59)
[2023-05-22] MEDS: NICOTINE 14 MG/24 HOURS TOPICAL PATCH TD SCH (09:59)
[2023-05-22] MEDS: ACETAMINOPHEN 325 MG TABLET (FP) PO PRN (10:00)
[2023-05-22] MEDS: MELATONIN 5 MG TABLETS PO SCH (22:17)
[2023-05-22] MEDS: THIAMINE HCL 100 MG TABLET (FP) PO SCH (22:17)
[2023-05-22] MEDS: hydrOXYzine PAMOATE 25 MG CAPSULE (FP) PO PRN (22:17)
[2023-05-23] MEDS: COLLOIDAL OATMEAL 1 BAR EACH TP PRN (06:59)
[2023-05-23] MEDS: PRENATAL VITAMINS W/ FOLIC ACID TABLET (FP) PO SCH (09:49)
[2023-05-23] MEDS: NICOTINE 14 MG/24 HOURS TOPICAL PATCH TD SCH (09:49)
[2023-05-23] MEDS: hydrOXYzine PAMOATE 25 MG CAPSULE (FP) PO PRN ×2 (09:51→22:00)
[2023-05-23] MEDS: IBUPROFEN 600 MG TABLET (FP) PO PRN ×2 (09:51→22:02)
[2023-05-23] MEDS: THIAMINE HCL 100 MG TABLET (FP) PO SCH (22:00)
[2023-05-23] MEDS: MELATONIN 5 MG TABLETS PO SCH (22:00)
[2023-05-23] MEDS: METHOCARBAMOL 500 MG TABLET PO SCH (22:00)
[2023-05-24] MEDS: IBUPROFEN 600 MG TABLET (FP) PO PRN ×2 (06:52→21:26)
[2023-05-24] MEDS: PRENATAL VITAMINS W/ FOLIC ACID TABLET (FP) PO SCH (09:42)
[2023-05-24] MEDS: NICOTINE 14 MG/24 HOURS TOPICAL PATCH TD SCH (09:42)
[2023-05-24] MEDS: METHOCARBAMOL 500 MG TABLET PO SCH ×2 (09:43→21:26)
[2023-05-24] MEDS: hydrOXYzine PAMOATE 25 MG CAPSULE (FP) PO PRN ×2 (09:44→21:26)
[2023-05-24] MEDS: ACETAMINOPHEN 325 MG TABLET (FP) PO PRN (09:44)
[2023-05-24] MEDS: THIAMINE HCL 100 MG TABLET (FP) PO SCH (21:25)
[2023-05-24] MEDS: MELATONIN 5 MG TABLETS PO SCH (21:25)
[2023-05-25] MEDS: IBUPROFEN 600 MG TABLET (FP) PO PRN ×3 (07:05→21:28)
[2023-05-25] MEDS: METHOCARBAMOL 500 MG TABLET PO SCH ×2 (09:49→21:28)
[2023-05-25] MEDS: NICOTINE 14 MG/24 HOURS TOPICAL PATCH TD SCH (09:49)
[2023-05-25] MEDS: PRENATAL VITAMINS W/ FOLIC ACID TABLET (FP) PO SCH (09:49)
[2023-05-25] MEDS: hydrOXYzine PAMOATE 25 MG CAPSULE (FP) PO PRN ×2 (09:50→21:28)
[2023-05-25] MEDS: ACETAMINOPHEN 325 MG TABLET (FP) PO PRN (09:52)
[2023-05-25] MEDS: MELATONIN 5 MG TABLETS PO SCH (21:28)
[2023-05-25] MEDS: THIAMINE HCL 100 MG TABLET (FP) PO SCH (21:28)
[2023-05-26] MEDS: IBUPROFEN 600 MG TABLET (FP) PO PRN ×2 (06:55→21:18)
[2023-05-26] MEDS: hydrOXYzine PAMOATE 25 MG CAPSULE (FP) PO PRN ×2 (10:23→21:19)
[2023-05-26] MEDS: NICOTINE 14 MG/24 HOURS TOPICAL PATCH TD SCH (10:23)
[2023-05-26] MEDS: PRENATAL VITAMINS W/ FOLIC ACID TABLET (FP) PO SCH (10:23)
[2023-05-26] MEDS: ACETAMINOPHEN 325 MG TABLET (FP) PO PRN (10:24)
[2023-05-26] MEDS: METHOCARBAMOL 500 MG TABLET PO SCH ×2 (10:24→21:19)
[2023-05-26] MEDS: MELATONIN 5 MG TABLETS PO SCH (21:17)
[2023-05-26] MEDS: THIAMINE HCL 100 MG TABLET (FP) PO SCH (21:19)
[2023-05-26] MEDS: GABAPENTIN 100 MG CAPSULE PO SCH (21:21)
[2023-05-27] MEDS: IBUPROFEN 600 MG TABLET (FP) PO PRN ×4 (06:58→21:30)
[2023-05-27] MEDS: GABAPENTIN 100 MG CAPSULE PO SCH ×3 (06:58→21:29)
[2023-05-27] MEDS: NICOTINE 14 MG/24 HOURS TOPICAL PATCH TD SCH (10:25)
[2023-05-27] MEDS: PRENATAL VITAMINS W/ FOLIC ACID TABLET (FP) PO SCH (10:26)
[2023-05-27] MEDS: METHOCARBAMOL 500 MG TABLET PO SCH ×2 (10:30→21:29)
[2023-05-27] MEDS: hydrOXYzine PAMOATE 25 MG CAPSULE (FP) PO PRN ×2 (10:31→21:30)
[2023-05-27] MEDS ORDERED: VITAMINS A AND D TOPICAL OINTMENT 60 GM TUBE TP PRN (11:33)
[2023-05-27] MEDS ORDERED: GABAPENTIN 100 MG CAPSULE PO ONE (11:41)
[2023-05-27] MEDS: MELATONIN 5 MG TABLETS PO SCH (21:29)
[2023-05-27] MEDS: THIAMINE HCL 100 MG TABLET (FP) PO SCH (21:29)
[2023-05-28] MEDS: GABAPENTIN 100 MG CAPSULE PO SCH ×3 (06:52→21:21)
[2023-05-28] MEDS: IBUPROFEN 600 MG TABLET (FP) PO PRN ×3 (06:52→21:22)
[2023-05-28] MEDS: COLLOIDAL OATMEAL 1 BAR EACH TP PRN (06:55)
[2023-05-28] MEDS: PRENATAL VITAMINS W/ FOLIC ACID TABLET (FP) PO SCH (10:07)
[2023-05-28] MEDS: METHOCARBAMOL 500 MG TABLET PO SCH ×2 (10:07→21:20)
[2023-05-28] MEDS: hydrOXYzine PAMOATE 25 MG CAPSULE (FP) PO PRN (10:10)
[2023-05-28] MEDS: ACETAMINOPHEN 325 MG TABLET (FP) PO PRN (10:10)
[2023-05-28] MEDS: NICOTINE 14 MG/24 HOURS TOPICAL PATCH TD SCH (10:34)
[2023-05-28] MEDS: MELATONIN 5 MG TABLETS PO SCH (21:21)
[2023-05-28] MEDS: THIAMINE HCL 100 MG TABLET (FP) PO SCH (21:21)
[2023-05-29] MEDS: GABAPENTIN 100 MG CAPSULE PO SCH ×3 (06:55→21:19)
[2023-05-29] MEDS: PRENATAL VITAMINS W/ FOLIC ACID TABLET (FP) PO SCH (10:03)
[2023-05-29] MEDS: METHOCARBAMOL 500 MG TABLET PO SCH ×2 (10:03→21:18)
[2023-05-29] MEDS: ACETAMINOPHEN 325 MG TABLET (FP) PO PRN (10:04)
[2023-05-29] MEDS: hydrOXYzine PAMOATE 25 MG CAPSULE (FP) PO PRN ×2 (10:04→21:17)
[2023-05-29] MEDS: NICOTINE 14 MG/24 HOURS TOPICAL PATCH TD SCH (10:04)
[2023-05-29] MEDS: IBUPROFEN 600 MG TABLET (FP) PO PRN ×2 (14:52→21:17)
[2023-05-29] MEDS: MELATONIN 5 MG TABLETS PO SCH (21:18)
[2023-05-29] MEDS: THIAMINE HCL 100 MG TABLET (FP) PO SCH (21:18)
[2023-05-30] MEDS: GABAPENTIN 100 MG CAPSULE PO SCH ×3 (07:00→21:17)
[2023-05-30] MEDS: IBUPROFEN 600 MG TABLET (FP) PO PRN ×2 (07:02→21:17)
[2023-05-30] MEDS: METHOCARBAMOL 500 MG TABLET PO SCH ×2 (10:33→21:22)
[2023-05-30] MEDS: PRENATAL VITAMINS W/ FOLIC ACID TABLET (FP) PO SCH (10:33)
[2023-05-30] MEDS: ACETAMINOPHEN 325 MG TABLET (FP) PO PRN ×2 (10:34→22:20)
[2023-05-30] MEDS: NICOTINE 14 MG/24 HOURS TOPICAL PATCH TD SCH (10:34)
[2023-05-30] MEDS: hydrOXYzine PAMOATE 25 MG CAPSULE (FP) PO PRN ×2 (10:34→22:21)
[2023-05-30] MEDS: MELATONIN 5 MG TABLETS PO SCH (21:16)
[2023-05-30] MEDS: THIAMINE HCL 100 MG TABLET (FP) PO SCH (21:16)
[2023-05-31] MEDS: GABAPENTIN 100 MG CAPSULE PO SCH ×3 (06:57→21:19)
[2023-05-31 07:50] VITALS: BP 159/98; PULSE 73; TEMP 97.4
[2023-05-31] MEDS: METHOCARBAMOL 500 MG TABLET PO SCH ×2 (09:55→21:19)
[2023-05-31] MEDS: IBUPROFEN 600 MG TABLET (FP) PO PRN ×2 (09:55→21:19)
[2023-05-31] MEDS: PRENATAL VITAMINS W/ FOLIC ACID TABLET (FP) PO SCH (09:55)
[2023-05-31] MEDS: hydrOXYzine PAMOATE 25 MG CAPSULE (FP) PO PRN ×2 (09:55→21:19)
[2023-05-31] MEDS: NICOTINE 14 MG/24 HOURS TOPICAL PATCH TD SCH (09:55)
[2023-05-31] MEDS: ACETAMINOPHEN 325 MG TABLET (FP) PO PRN (13:45)
[2023-05-31] MEDS: THIAMINE HCL 100 MG TABLET (FP) PO SCH (21:19)
[2023-05-31] MEDS: MELATONIN 5 MG TABLETS PO SCH (21:46)
[2023-06-01] MEDS: GABAPENTIN 100 MG CAPSULE PO SCH (07:00)
[2023-06-01] MEDS: IBUPROFEN 600 MG TABLET (FP) PO PRN (07:36)
[2023-06-01] MEDS: METHOCARBAMOL 500 MG TABLET PO SCH (10:20)
[2023-06-01] MEDS: PRENATAL VITAMINS W/ FOLIC ACID TABLET (FP) PO SCH (10:20)
[2023-06-01] MEDS: hydrOXYzine PAMOATE 25 MG CAPSULE (FP) PO PRN (10:20)
[2023-06-01] MEDS: NICOTINE 14 MG/24 HOURS TOPICAL PATCH TD SCH (10:20)
[2023-06-01] MEDS: ACETAMINOPHEN 325 MG TABLET (FP) PO PRN (12:17)
== END 2023-06-01 12:25 | disposition left against medical advice (07) | DRG 770 ==
LOC: YASAS 02:12 → Y5N 07:37
PROVIDERS: ADMIT Allergy & Immunology; ATTEND Psychiatry & Neurology Pain Medicine
PROC: HZ42ZZZ Group Counseling for Substance Abuse Treatment, Cognitive-Behavioral (ICD-10-PCS; principal; 2023-05-16)
DX: F10.20 Alcohol dependence, uncomplicated (principal); F17.210 Nicotine dependence, cigarettes, uncomplicated; F10.282 Alcohol dependence with alcohol-induced sleep disorder; F10.24 Alcohol dependence with alcohol-induced mood disorder; F25.9 Schizoaffective disorder, unspecified; F31.9 Bipolar disorder, unspecified; G62.9 Polyneuropathy, unspecified; Z91.148 Patient's other noncompliance with medication regimen for other reason; Z59.02 Unsheltered homelessness; F91.8 Other conduct disorders; Z91.199 Patient's noncompliance with other medical treatment and regimen due to unspecified reason
CPT/HCPCS: 36415; 81025; 83036; 86803; 86850; 86900; 86901; 87635; 87811

== ENCOUNTER 2024-07-16 12:46 | Inpatient (IN) | payer BC ==
[2024-07-16 13:47] VITALS: BMI 29.5
[2024-07-16] MEDS ORDERED: BENZONATATE 200 MG CAPSULE PO PRN (14:12)
[2024-07-16] MEDS ORDERED: LOPERAMIDE HCL 2 MG CAPSULE PO PRN (14:12)
[2024-07-16] MEDS ORDERED: ONDANSETRON *ODT* 4 MG TABLET SL PRN (14:12)
[2024-07-16] MEDS ORDERED: POLYETHYLENE GLYCOL (HEALTHYLAX) 3350 17 GM PACKET PO PRN (14:12)
[2024-07-16] MEDS ORDERED: guaiFENesin 600 MG TABLET.ER (FP) PO PRN (14:12)
[2024-07-16] MEDS ORDERED: BENZOCAINE/MENTHOL (CHLORASEPTIC ) LOZENGE MM PRN (14:12)
[2024-07-16] MEDS ORDERED: MAG HYDROX/AL HYDROX/SIMETH 30 ML UNIT-DOSE CUP PO PRN (14:12)
[2024-07-16] MEDS ORDERED: MAGNESIUM HYDROX 2400MG/30ML ORAL SUSPENSION 30 ML CUP PO PRN (14:12)
[2024-07-16] MEDS ORDERED: BISMUTH SUBSALICYLATE 262 MG/15 ML BTL PO PRN (14:12)
[2024-07-16] MEDS ORDERED: IBUPROFEN 400 MG TABLET (FP) PO PRN (14:12)
[2024-07-16] MEDS ORDERED: DICYCLOMINE HCL 10 MG CAPSULE PO PRN (14:12)
[2024-07-16] MEDS: MELATONIN 5 MG TABLETS PO SCH (22:58)
[2024-07-16] MEDS: THIAMINE 100 MG TABLET PO SCH (22:58)
[2024-07-17] MEDS ORDERED: chlordiazePOXIDE HCL 25 MG CAPSULE PO PRN (09:03)
[2024-07-17] MEDS: PRENATAL VITAMINS W/ FOLIC ACID TABLET (FP) PO SCH (10:44)
[2024-07-17] MEDS: chlordiazePOXIDE HCL 25 MG CAPSULE PO SCH (10:46)
[2024-07-17 12:31] LABS: HEMATOCRIT 34.1 % (32.4-45.2); HEMOGLOBIN 11.4 GM/dL (10.7-15.3); MCH 29.8 pg (25.7-33.7); MCHC 33.4 g/dl (32.0-36.0); MEAN CELL VOLUME 89.1 fl (80-96); MEAN PLT VOLUME 7.2 fl (7.5-11.1); PLATELET COUNT 396 10^3/uL (134-434); POTASSIUM 3.4 mmol/L (3.5-5.1); RBC 3.82 M/mm3 (3.60-5.2); WHITE BLOOD COUNT 5.6 K/mm3 (4.0-10.0)
[2024-07-17 12:36] LABS: CALCIUM 8.6 mg/dL (8.5-10.1)
[2024-07-17 12:37] LABS: ALBUMIN 3.1 g/dl (3.4-5.0); BLOOD UREA NITROGEN 9.2 mg/dL (7-18)
[2024-07-17 12:40] LABS: CREATININE 0.6 mg/dL (0.55-1.3)
[2024-07-17 12:42] LABS: BILIRUBIN,TOTAL 0.5 mg/dL (0.2-1); TOT PROT 5.8 g/dl (6.4-8.2)
[2024-07-17] MEDS: IBUPROFEN 600 MG TABLET (FP) PO PRN (17:25)
[2024-07-18] MEDS: ACETAMINOPHEN 325 MG TABLET (FP) PO PRN (17:38)
[2024-07-19] MEDS: chlordiazePOXIDE HCL 25 MG CAPSULE PO SCH (06:37)
[2024-07-19] MEDS: METHOCARBAMOL 500 MG TABLET PO PRN (10:27)
[2024-07-19] MEDS: hydrOXYzine PAMOATE 25 MG CAPSULE (FP) PO PRN (17:30)
[2024-07-20] MEDS ORDERED: chlordiazePOXIDE HCL 10 MG CAPSULE PO PRN
[2024-07-20] MEDS: chlordiazePOXIDE HCL 10 MG CAPSULE PO SCH (05:41)
[2024-07-20] MEDS: METHOCARBAMOL 500 MG TABLET PO PRN (22:08)
[2024-07-21] MEDS: chlordiazePOXIDE HCL 10 MG CAPSULE PO SCH (06:00)
[2024-07-22] MEDS: chlordiazePOXIDE HCL 10 MG CAPSULE PO ONE (05:59)
[2024-07-22] MEDS: NALOXONE (NYS OPIOID OVERDOSE PROGRAM) 4 MG/0.1 ML SPRAY NS SCH (08:48)
[2024-07-22 09:02] VITALS: BP 118/78; PULSE 84; RESP 18; TEMP 96.8
== END 2024-07-22 09:15 | disposition other institution (70) | DRG 774 ==
LOC: YASAS 12:46 → Y3N 15:51
PROVIDERS: ADMIT Allergy & Immunology; ATTEND Allergy & Immunology
PROC: HZ2ZZZZ Detoxification Services for Substance Abuse Treatment (ICD-10-PCS; principal; 2024-07-16)
DX: F10.230 Alcohol dependence with withdrawal, uncomplicated (principal); F14.10 Cocaine abuse, uncomplicated; F25.9 Schizoaffective disorder, unspecified; F31.9 Bipolar disorder, unspecified; F22 Delusional disorders; G60.9 Hereditary and idiopathic neuropathy, unspecified
CPT/HCPCS: 36415; 80053; 80305; 80307; 81025; 85027; 86780